=== PATIENT | female | born 1980 | race African-American/Black ===

== ENCOUNTER 2020-04-25 11:22 | Inpatient (IN) | payer OTHER ==
[2020-04-25 12:50] VITALS: BMI 29.3
[2020-04-25] MEDS ORDERED: chlordiazePOXIDE HCL 25 MG CAPSULE PO PRN (14:00)
[2020-04-25] MEDS ORDERED: ONDANSETRON *ODT* 4 MG TABLET SL PRN (14:00)
[2020-04-25] MEDS ORDERED: METHOCARBAMOL 500 MG TABLET PO PRN (14:00)
[2020-04-25] MEDS ORDERED: MAGNESIUM HYDROX 2400MG/30ML ORAL SUSPENSION 30 ML CUP PO PRN (14:00)
[2020-04-25] MEDS ORDERED: BISMUTH SUBSALICYLATE 262 MG/15 ML BTL PO PRN (14:00)
[2020-04-25] MEDS ORDERED: NICOTINE POLACRILEX 2 MG GUM BUC PRN (14:00)
[2020-04-25] MEDS ORDERED: MENTHOL/PHENOL 1 EACH UD MM PRN (14:00)
[2020-04-25] MEDS ORDERED: MAGNESIUM CITRATE 300 ML BOTTLE PO PRN (14:00)
[2020-04-25] MEDS ORDERED: ACETAMINOPHEN 325 MG TABLET (FP) PO PRN ×2 (14:00)
[2020-04-25] MEDS ORDERED: IBUPROFEN 400 MG TABLET (FP) PO PRN (14:00)
[2020-04-25] MEDS ORDERED: MAG HYDROX/AL HYDROX/SIMETH 30 ML UNIT-DOSE CUP PO PRN (14:00)
[2020-04-25 16:17] LABS: HEMATOCRIT 39.1 % (32.4-45.2); HEMOGLOBIN 12.9 GM/dL (10.7-15.3); MCH 29.4 pg (25.7-33.7); MEAN CELL VOLUME 89.1 fl (80-96); MEAN PLT VOLUME 11.7 fl (7.5-11.1); RBC 4.39 M/mm3 (3.60-5.2); RDW 14.1 % (11.6-15.6); WHITE BLOOD COUNT 7.6 K/mm3 (4.0-10.0)
[2020-04-25 16:19] LABS: CALCIUM 10.5 mg/dL (8.5-10.1)
[2020-04-25 16:20] LABS: ALBUMIN 3.5 g/dl (3.4-5.0); BLOOD UREA NITROGEN 5.9 mg/dL (7-18)
[2020-04-25 16:22] LABS: CREATININE 0.8 mg/dL (0.55-1.3)
[2020-04-25 16:24] LABS: BILIRUBIN,TOTAL 0.9 mg/dL (0.2-1); TOT PROT 7.3 g/dl (6.4-8.2)
[2020-04-25 16:38] LABS: POTASSIUM 2.6 mmol/L (3.5-5.1)
[2020-04-25] MEDS ORDERED: POTASSIUM CHLORIDE TABS 20 MEQ TABLET.ER (FP) PO ONE (16:42)
[2020-04-25 17:07] LABS: PLATELET COUNT 166 K/MM3 (134-434)
[2020-04-25] MEDS: chlordiazePOXIDE HCL 25 MG CAPSULE PO SCH ×2 (17:45→22:43)
[2020-04-25] MEDS: NICOTINE 14 MG/24 HOURS TOPICAL PATCH TD SCH (17:47)
[2020-04-25] MEDS: PRENATAL VITAMINS W/ FOLIC ACID TABLET (FP) PO SCH (17:49)
[2020-04-25] MEDS: hydrOXYzine PAMOATE 25 MG CAPSULE (FP) PO SCH ×3 (17:49→22:41)
[2020-04-25] MEDS: amLODIPine BESYLATE 10 MG TABLET (FP) PO SCH (19:09)
[2020-04-25] MEDS: MELATONIN 5 MG TABLETS PO SCH (22:41)
[2020-04-25] MEDS: THIAMINE HCL 100 MG TABLET (FP) PO SCH (22:41)
[2020-04-26] MEDS: chlordiazePOXIDE HCL 25 MG CAPSULE PO SCH ×4 (06:04→22:44)
[2020-04-26] MEDS: hydrOXYzine PAMOATE 25 MG CAPSULE (FP) PO SCH ×3 (06:04→13:03)
[2020-04-26] MEDS: NICOTINE 14 MG/24 HOURS TOPICAL PATCH TD SCH (10:24)
[2020-04-26] MEDS: amLODIPine BESYLATE 10 MG TABLET (FP) PO SCH (10:24)
[2020-04-26] MEDS: PRENATAL VITAMINS W/ FOLIC ACID TABLET (FP) PO SCH (10:24)
[2020-04-26] MEDS ORDERED: hydrOXYzine PAMOATE 25 MG CAPSULE (FP) PO PRN (14:27)
[2020-04-26] MEDS: POTASSIUM CHLORIDE TABS 20 MEQ TABLET.ER (FP) PO SCH (15:31)
[2020-04-26] MEDS: MELATONIN 5 MG TABLETS PO SCH (22:44)
[2020-04-26] MEDS: THIAMINE HCL 100 MG TABLET (FP) PO SCH (22:44)
[2020-04-27] MEDS: chlordiazePOXIDE HCL 25 MG CAPSULE PO SCH ×4 (06:10→22:28)
[2020-04-27] MEDS: POTASSIUM CHLORIDE TABS 20 MEQ TABLET.ER (FP) PO SCH (10:23)
[2020-04-27] MEDS: PRENATAL VITAMINS W/ FOLIC ACID TABLET (FP) PO SCH (10:23)
[2020-04-27] MEDS: amLODIPine BESYLATE 10 MG TABLET (FP) PO SCH (10:24)
[2020-04-27] MEDS: NICOTINE 14 MG/24 HOURS TOPICAL PATCH TD SCH (10:25)
[2020-04-27 10:30] LABS: BASO % 0.7 % (0-2.0); EOS % 2.3 % (0-4.5); HEMATOCRIT 38.6 % (32.4-45.2); HEMOGLOBIN 12.6 GM/dL (10.7-15.3); MCH 29.2 pg (25.7-33.7); MCHC 32.6 g/dl (32.0-36.0); MEAN CELL VOLUME 89.4 fl (80-96); MEAN PLT VOLUME 11.9 fl (7.5-11.1); MONO % 14.9 % (3.8-10.2); NEUT % 46.1 % (42.8-82.8); POTASSIUM 3.7 mmol/L (3.5-5.1); RBC 4.32 M/mm3 (3.60-5.2); RDW 14.1 % (11.6-15.6); WHITE BLOOD COUNT 4.3 K/mm3 (4.0-10.0)
[2020-04-27 10:38] LABS: CALCIUM 9.7 mg/dL (8.5-10.1)
[2020-04-27 10:39] LABS: ALBUMIN 3.1 g/dl (3.4-5.0); BLOOD UREA NITROGEN 9.4 mg/dL (7-18)
[2020-04-27 10:42] LABS: CREATININE 0.7 mg/dL (0.55-1.3)
[2020-04-27 10:43] LABS: BILIRUBIN,TOTAL 0.4 mg/dL (0.2-1)
[2020-04-27 10:44] LABS: TOT PROT 6.8 g/dl (6.4-8.2)
[2020-04-27 11:40] LABS: PLATELET COUNT 202 K/MM3 (134-434)
[2020-04-27] MEDS: THIAMINE HCL 100 MG TABLET (FP) PO SCH (22:28)
[2020-04-27] MEDS: MELATONIN 5 MG TABLETS PO SCH (22:28)
[2020-04-28] MEDS ORDERED: chlordiazePOXIDE HCL 10 MG CAPSULE PO PRN
[2020-04-28] MEDS: chlordiazePOXIDE HCL 10 MG CAPSULE PO SCH ×4 (05:36→22:40)
[2020-04-28] MEDS: amLODIPine BESYLATE 10 MG TABLET (FP) PO SCH (10:24)
[2020-04-28] MEDS: POTASSIUM CHLORIDE TABS 20 MEQ TABLET.ER (FP) PO SCH (10:24)
[2020-04-28] MEDS: NICOTINE 14 MG/24 HOURS TOPICAL PATCH TD SCH (10:24)
[2020-04-28] MEDS: PRENATAL VITAMINS W/ FOLIC ACID TABLET (FP) PO SCH (10:24)
[2020-04-28] MEDS: AMMONIUM LACTATE 12% LOTION 225 GM BOTTLE TP SCH ×2 (13:26→22:37)
[2020-04-28] MEDS: THIAMINE HCL 100 MG TABLET (FP) PO SCH (22:39)
[2020-04-28] MEDS: MELATONIN 5 MG TABLETS PO SCH (22:39)
[2020-04-29] MEDS ORDERED: chlordiazePOXIDE HCL 10 MG CAPSULE PO SCH (05:00)
[2020-04-29 07:26] VITALS: BP 122/84; PULSE 75; TEMP 97.3
[2020-04-29] MEDS: PRENATAL VITAMINS W/ FOLIC ACID TABLET (FP) PO SCH (09:55)
[2020-04-29] MEDS: NICOTINE 14 MG/24 HOURS TOPICAL PATCH TD SCH (09:56)
[2020-04-29] MEDS: amLODIPine BESYLATE 10 MG TABLET (FP) PO SCH (09:56)
[2020-04-29] MEDS: AMMONIUM LACTATE 12% LOTION 225 GM BOTTLE TP SCH (09:56)
[2020-04-30] MEDS ORDERED: chlordiazePOXIDE HCL 10 MG CAPSULE PO ONE (05:00)
== END 2020-04-29 10:40 | disposition home or self-care (01) | DRG 775 ==
LOC: YASAS 11:22 → Y3N 13:56
PROVIDERS: ADMIT Allergy & Immunology; ATTEND Allergy & Immunology
PROC: HZ2ZZZZ Detoxification Services for Substance Abuse Treatment (ICD-10-PCS; principal; 2020-04-25)
DX: F10.230 Alcohol dependence with withdrawal, uncomplicated (principal); F12.20 Cannabis dependence, uncomplicated; F17.210 Nicotine dependence, cigarettes, uncomplicated; F32.9 Major depressive disorder, single episode, unspecified; E72.20 Disorder of urea cycle metabolism, unspecified; E87.6 Hypokalemia; I10 Essential (primary) hypertension; R63.4 Abnormal weight loss; Z68.29 Body mass index [BMI] 29.0-29.9, adult
CPT/HCPCS: 36415; 80053; 81025; 84132; 85025; 85027; 86780; 93005; 93010; C9803; U0003